=== PATIENT | male | born 1990 | race Caucasian/White ===

== ENCOUNTER 2016-10-05 05:50 | Day surgery (SDC) | payer MEDICARE ==
--- NOTE | ~2016-10-05 | EGD ---
EGD REPORT [facility] [address] [address] NAME: HERMELINDA CANTU : [birth year] STATUS : REG [facility]#: [id number] AGE: 26 ADM/REG DATE : 10/05/16 MR#: [id number] REPORT SERV DATE: 10/05/16 DICTATED BY: LARRY LAMAR DATE: 10/05/16 REPORT STATUS : Draft [facility] DATE: 10/05/16 Endoscopy Center Patient Name: Hermelinda Cantu Date of : 1990 Attending MD: LARRY LAMAR MD Procedure Date No Time: 10/05/2016 Procedure: Upper GI endoscopy Indications: Dyspepsia, Heartburn, Suspected esophageal reflux, Nausea with vomiting, Weight loss Referring MD: Lien Gaston Medicines: Propofol per Anesthesia Complications: No immediate complications. Procedure: Pre-Anesthesia Assessment: - ASA Grade Assessment: III - A patient with severe systemic disease. After obtaining informed consent, the endoscope was passed under direct vision. Throughout the procedure, the patient's blood pressure, pulse, and oxygen saturations were monitored continuously. The [facility] [id number] was introduced through the mouth, and advanced to the second part of duodenum. The upper GI endoscopy was accomplished without difficulty. The patient tolerated the procedure well. Findings: LA Grade B (one or more mucosal breaks greater than 5 mm, not extending between the tops of two mucosal folds) esophagitis with no bleeding was found. Mucosa was biopsied with a cold forceps for histology in 4 quadrants in the lower third of the esophagus. One specimen bottle was sent to pathology. From 30 cm to 38 cm measuring from the incisors the mucousa appeared to be salmon pink colored most consistent with montoya's esophagitis. Multiple biopsies were obtained. A small hiatus hernia was present. Diffuse mild inflammation characterized by erosions and erythema was found in the stomach. Biopsies were taken with a cold forceps for histology. The examined duodenum was normal. Biopsies were taken with a cold forceps for histology. Impression: - LA Grade B reflux esophagitis. Biopsied. - Hiatus hernia. - Chronic gastritis. Biopsied. - Normal examined duodenum. Biopsied. EGD REPORT [address] [address] NAME: HERMELINDA CANTU : [birth year] STATUS : REG [facility] PAT#: [id number] AGE: 26 ADM/REG DATE : 10/05/16 MR#: [id number] REPORT SERV DATE: 10/05/16 DICTATED BY: LARRY LAMAR DATE: 10/05/16 REPORT STATUS : Draft TRANSCRIBED BY: [employer] DATE: 10/05/16 Recommendation: - Discharge patient to home (ambulatory). - Return to my office in 3 weeks. Procedure Code(s): --- Professional --- 16685, Esophagogastroduodenoscopy, flexible, transoral; with biopsy, single or multiple Diagnosis Code(s): --- Professional --- K21.0, Gastro-esophageal reflux disease with esophagitis K44.9, Diaphragmatic hernia without obstruction or gangrene K29.50, Unspecified chronic gastritis without bleeding K30, Functional dyspepsia R12, Heartburn R11.2, Nausea with vomiting, unspecified R63.4, Abnormal weight loss CPT copyright 2013 [employer]. All rights reserved. The codes documented in this report are preliminary and upon monotype caster review may be revised to meet current compliance requirements. Larry Lamar MD LARRY LAMAR MD 10/05/2016 7:27 AM This report has been signed electronically. Number of Addenda: 0 Note Initiated On: 10/05/2016 6:51 AM Scope Withdrawal Time 0 hours 0 minutes 0 seconds [id number] [place] [id number]
--- NOTE | ~2016-10-05 | EGD ---
EGD REPORT [facility] [address] [address] NAME: HERMELINDA CANTU : [birth year] STATUS : REG [facility]#: [id number] AGE: 26 ADM/REG DATE : 10/05/16 MR#: [id number] REPORT SERV DATE: 10/05/16 DICTATED BY: LARRY LAMAR DATE: 10/05/16 REPORT STATUS : Draft [facility]ANS[facility]IBED [facility]: [facility] DATE: 10/05/16 Endoscopy Center Patient Name: Hermelinda Cantu Date of : 1990 Attending MD: LARRY LAMAR MD Procedure Date No Time: 10/05/2016 Procedure: Colonoscopy Indications: Weight loss Referring MD: Lien Gaston Medicines: Propofol per Anesthesia Complications: No immediate complications. Procedure: Pre-Anesthesia Assessment: - ASA Grade Assessment: III - A patient with severe systemic disease. After I obtained informed consent, the scope was passed under direct vision. Throughout the procedure, the patient's blood pressure, pulse, and oxygen saturations were monitored continuously. The CF [id number] was introduced through the anus and advanced to the cecum, identified by appendiceal orifice and ileocecal valve. The colonoscopy was performed without difficulty. The patient tolerated the procedure well. The quality of the bowel preparation was good. Findings: The perianal and digital rectal examinations were normal. The colon (entire examined portion) appeared normal. Impression: - The entire examined colon is normal. Recommendation: - Patient has a contact number available for emergencies. The signs and symptoms of potential delayed complications were discussed with the patient. Return to normal activities tomorrow. Written discharge instructions were provided to the patient. - Regular diet. - Patient has a contact number available for emergencies. The signs and symptoms of potential delayed complications were discussed with the patient. Return to normal activities tomorrow. Written discharge instructions were provided to the patient. - Continue present medications. - Patient has a contact number available for emergencies. The signs and symptoms of potential delayed complications were discussed with the patient. Return to EGD REPORT [address] [address] NAME: HERMELINDA CANTU : 88 STATUS : REG [facility] PAT#: [id number] AGE: 26 ADM/REG DATE : 10/05/16 MR#: [id number] REPORT SERV DATE: 10/05/16 DICTATED BY: LARRY LAMAR. DATE: 10/05/16 REPORT STATUS : Draft TRANSCRIBED BY: [employer] DATE: 10/05/16 normal activities tomorrow. Written discharge instructions were provided to the patient. - Repeat colonoscopy in 10 years for screening purposes. Procedure Code(s): --- Professional --- 24119, Colonoscopy, flexible, proximal to splenic flexure; diagnostic, with or without collection of specimen(s) by brushing or washing, with or without colon decompression (separate procedure) Diagnosis Code(s): --- Professional --- R63.4, Abnormal weight loss CPT copyright 2013 [employer]. All rights reserved. The codes documented in this report are preliminary and upon air route traffic controller review may be revised to meet current compliance requirements. Larry Lamar MD LARRY LAMAR MD 10/05/2016 7:40 AM This report has been signed electronically. Number of Addenda: 0 Note Initiated On: 10/05/2016 6:54 AM Scope Withdrawal Time 0 hours 6 minutes 2 seconds [id number] [place] [address]
[~2016-10-05 05:50] MED LIST: BEN25 PO; BUSPAR15 M1 PO; COG2 PO; EFFEXOR XR150 MG PO; HAIR SKIN AND NAILS PO; NAP500 PO; NEUR800 PO; PR25 PO; PREV15 PO; PROTONIX PO; PROZAC40 MG PO; TOPAMAX100 PO
[2017-01-26] MEDS ORDERED: TOPAMAX200 MG PO (09:11)
[2017-01-26] MEDS ORDERED: NORCO1 TA1 PO (09:13)
[2017-01-26] MEDS ORDERED: ZANAFLEX 4 MG TA4 MG PO (09:13)
[2017-01-26] MEDS ORDERED: LIOR10 PO (09:15)
== END 2016-10-05 23:59 | disposition home or self-care (01) ==
LOC: DMU 05:50
PROVIDERS: Internal Medicine Gastroenterology
PROC: 0DB58ZX Excision of Esophagus, Via Natural or Artificial Opening Endoscopic, Diagnostic (ICD-10-PCS; 2016-10-05)
PROC: 0DB68ZX Excision of Stomach, Via Natural or Artificial Opening Endoscopic, Diagnostic (ICD-10-PCS; 2016-10-05)
PROC: 0DJD8ZZ Inspection of Lower Intestinal Tract, Via Natural or Artificial Opening Endoscopic (ICD-10-PCS; principal; 2016-10-05 08:30)
PROC: 0DB98ZX Excision of Duodenum, Via Natural or Artificial Opening Endoscopic, Diagnostic (ICD-10-PCS; 2016-10-05 08:30)
DX: K22.70 Barrett's esophagus without dysplasia (principal); R63.4 Abnormal weight loss; K44.9 Diaphragmatic hernia without obstruction or gangrene; F17.210 Nicotine dependence, cigarettes, uncomplicated; F41.9 Anxiety disorder, unspecified; F31.9 Bipolar disorder, unspecified; E66.01 Morbid (severe) obesity due to excess calories; Z68.43 Body mass index [BMI] 50.0-59.9, adult
CPT/HCPCS: 88305

== ENCOUNTER 2017-01-27 05:49 | Day surgery (SDC) | payer MEDICARE ==
[~2017-01-27] VITALS: Ht 170.2 cm; Wt 154.2 kg
[~2017-01-27 05:49] MED LIST changes: +LIOR10 PO; +NORCO1 TA1 PO; +TOPAMAX200 MG PO; +ZANAFLEX 4 MG TA4 MG PO
== END 2017-01-27 10:45 | disposition home or self-care (01) ==
LOC: SDC 05:49
PROVIDERS: Orthopaedic Surgery
PROC: 3E0S3BZ Introduction of Anesthetic Agent into Epidural Space, Percutaneous Approach (ICD-10-PCS; 2017-01-27)
PROC: B01BYZZ Fluoroscopy of Spinal Cord using Other Contrast (ICD-10-PCS; 2017-01-27)
PROC: 3E0S33Z Introduction of Anti-inflammatory into Epidural Space, Percutaneous Approach (ICD-10-PCS; principal; 2017-01-27 08:00)
DX: M54.16 Radiculopathy, lumbar region (principal); Z87.891 Personal history of nicotine dependence; Z98.890 Other specified postprocedural states; Z79.899 Other long term (current) drug therapy; Z88.8 Allergy status to other drugs, medicaments and biological substances
CPT/HCPCS: J1040; J2250; J2405; J3010; Q9967